=== PATIENT | male | born 1995 | race Caucasian/White ===

== ENCOUNTER 2024-11-03 17:34 | Emergency (ER) | payer OTHER ==
[2024-11-03 17:43] VITALS: BP 135/75; PULSE 58; RESP 20; TEMP 98.6; BMI 39.6
[2024-11-03] MEDS ORDERED: IBUPROFEN 600 MG TABLET (FP) PO ONE ×2 (19:05→19:28)
[2024-11-03] MEDS: IBUPROFEN 600 MG TABLET (FP) PO ONE (19:43)
== END 2024-11-03 19:51 | disposition home or self-care (01) ==
LOC: JER 17:34
DX: M79.674 Pain in right toe(s) (principal)
CPT/HCPCS: 73660-TC-FY; 99283-25